=== PATIENT | male | born 1950 | race Caucasian/White ===

== ENCOUNTER 2019-12-10 08:59 | Outpatient (CLI) | payer MEDICARE, OTHER, SELFPAY ==
--- NOTE | 2019-12-10 09:12 | CT_ITS ---
WS: [id number] CT CHEST TECHNIQUE: Contrast enhanced CT of the chest with coronal and sagittal reformatted images. 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 FINDINGS: Moderate chronic emphysematous changes. No evidence of metastatic disease. No suspicious pu lmonary parenchymal abnormalities. Interstitial thickening in the lung bases likely inflammatory unch anged. No new pulmonary infiltrates. A few calcified granulomas. No mediastinal or hilar lymphadenopathy. Small esophageal hiatal hernia. Proximal main pulmonary liberty alejandra are normal. Normal caliber thoracic aorta. No axillary lymphadenopathy. 9 mm right adrenal nodule likely adenoma unchanged. Mild fatty atrophy of the pancreas. Prominent ant erior hypertrophic changes thoracic spine. CT/CT chest w con* [id number] IMPRESSION: 1. No evidence of metastatic disease. 2. No mediastinal or hilar lymphadenopathy. 3. Interstitial thickening right greater than left lung base likely inflammator y unchanged. 4. No significant interval changes.
--- NOTE | 2019-12-10 09:12 | CT_ITS ---
WS: [id number] CT NECK TECHNIQUE: Contrast-enhanced CT of the neck with coronal and sagittal reformatted images. 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 FINDINGS: Prior postoperative changes left submandibular gland resection. Prior resection left lateral tongue b ase mass. No evidence of residual or recurrent disease. Stable postoperative and posttherapeutic changes at the tongue base. Parotid glands are normal. No ce rvical lymphadenopathy. No evidence of supraglottic or glottic mass. Lung apices are normal. Moderate spondylitic changes cervical spine with mild/moderate central canal stenosis C5-C6 and C6-C7. Paranasal sinuses and mastoid air cells are well aerated. CT/CT neck w con* [id number] IMPRESSION: 1. No evidence of residual or recurrent disease. 2. No cervical Lymphadenopathy . 3. Prior postoperative changes resection left submandibular gland. Previous Res ection left lateral tongue base mass. 4. No significant interval changes since May 03, 2019
[2019-12-10 10:13] LABS: Blood Urea Nitrogen 13 mg/dL (8-23)
[2019-12-10] MEDS: iohexol 300 mg/mL 100 mL Btl IV ×2 (10:23→10:28)
== END 2019-12-10 09:00 | disposition home or self-care (01) ==
LOC: RADWPI 09:07
PROVIDERS: Family Provider Family Medicine; PCP Radiology Radiation Oncology; Visit Provider Radiology Radiation Oncology
DX: C02.8 Malignant neoplasm of overlapping sites of tongue (principal)
CPT/HCPCS: 70491; 71260; 82565; 84520; Q9967

== ENCOUNTER 2019-12-13 09:13 | Outpatient (CLI) | payer MEDICARE, OTHER, SELFPAY ==
[2019-12-13 11:57] LABS: Thyroid Stimulating Hormone 3.99 uIU/mL (0.27-4.20)
--- NOTE | 2019-12-13 13:07 | ONCRAD EPV_ITS ---
Radiation Oncology Established Patient Visit Patient: Juanjose MR#: [id number] : 1950 Age: 69 Sex: Male Dictated by: Dr. James Mccarthy Date of Service: 12/13/2019 Referring Physician(s) : Dr. 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 ID: [id number], Energy: 6X, Dose/Fx (cGy): 200, #Fx: 3 / 3, Dose Correction (cGy): 0, Total Dose (cGy): 600, Start Date: 05/06/2018, End Date: 05/08/2018, Elapsed Days: 2 Treatment Site: Initial 54Gy, Ref. ID: [id number], Energy: 6X, Dose/Fx (cGy): 200, #Fx: , Dose Correction (cGy): 0, Total Dose (cGy): 5,400, Start Date: 03/26/2018, End Date: 05/05/2018, Elapsed Days: 40 Current History: The patient is seen in follow-up today, and he reports no difficulty swallowing, no aspiration, no new lumps or bumps on his neck, and his weight is stable. He has persistent yet mildly improving dysgeusia, and persistent xerostomia. By report, his last TSH was completed July 2018 (laboratory values not currently available to me). 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 Current Medications: Allergies: No Known Allergies Current Complaints / Review of Systems: Constitutional - Denies lack of appetite, fatigue, fever, night sweats and change in weight. Eyes - Denies blurred vision and double vision. ENMT - Complains of altered taste and tinnitus. Denies dysphagia, ear pain, problems with hearing, mouth dryness and stomatitis. Neck - Complains of decreased range of motion to the right. Denies neck pain and swelling of the neck. Integumentary - Denies rash. Cardiovascular - Denies arrhythmias, chest pain and edema. Respiratory - Denies cough, dyspnea, hiccoughs and wheezing. Gastrointestinal - Denies abdominal pain, constipation, diarrhea, heartburn / dyspepsia, melena / GI bleeding, nausea and vomiting. Genitourinary (M) - Complains of nocturia occasionally. Denies dysuria, frequency and urgency. Musculoskeletal - Denies bone pain, joint pain and muscle weakness. Neurologic - Denies dizziness, abnormal gait and headaches. Endocrine - Denies diabetes and thyroid disease. Hematologic/Lymphatic - Denies tender or enlarged lymph nodes.. Vital Signs: Performed on 12/13/2019 9:52 AM BMI - 28.531 kg/m2 (high), Height - 69.00 in, Weight - 193.2 lbs, Temperature - 97.3 f, Pulse - 48, Respiration - 18, O2 Sat - 97 %, Pain - 0, Fatigue - 0 and BP - 126/ 80 mm(hg). Physical Exam: General: Alert and oriented x 3. No acute distress. HEENT: Normocephalic, atraumatic. Extraocular Movements Intact: Pupils Equal, Round, Reactive to Light and Accommodation: Sclerae anicteric. Oral cavity is clear without lesions, masses or ulcers, and, the patient is edentulous. The uvula flexes midline. The oral tongue demonstrates limited range of motion, but no visual mucosal irregularity or palpable masses concerning for recurrence. NECK: Supple without supraclavicular or jugular lymphadenopathy. The patient has moderate range of motion limitations to his neck secondary to left neck fibrotic posttreatment changes. LUNGS: Clear to auscultation bilaterally without rales, rhonchi or wheeze. HEART: Regular rate and rhythm, normal S1 and S2 without murmur, gallop or rub. MUSCULOSKELETAL: No tenderness or percussion pain over the axial skeleton, scapulae or pelvis. EXTREMITIES: No peripheral edema is identified. NEUROLOGIC: Cranial nerves II ???XII are grossly intact. Normal sensation, strength 5/5 in all extremities, normal gait, no ataxia. Performance Status: ECOG 0 Lab: None pending. Pathology: Primary, c02.8 - malignant neoplasm of overlapping sites of tongue, Diagnosed 02/09/2018 (active). 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 The patient has no clinical or radiographic evidence of disease recurrence, or metastasis. After reviewing the medical records, in November [address] of the neck identified a 5 mm nodule in the right upper lobe of lung. A follow-up CT of the chest in January 2019 noted that the 5 mm nodule in the right upper lobe of lung was not as evident . The patient presented for follow-up today with a CT of the chest and CT of the neck (12/10/2019). There is no evidence of malignant disease in the neck or chest. There may be limited benefit to continue with further radiographic surveillance especially since the 4 month posttreatment PET/CT was negative, and the 5 mm nodule in the right upper lobe of lung is not as evident. Therefore, I recommend that further radiographic imaging only become completed as deemed clinically necessary. I have ordered a TSH today, since the last one was done July 2018. We will call the patient with results of the TSH and next management steps. The patient no longer smokes, and he is edentulous. I recommended follow-up with us in 4 months. 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 Signed by: 12/13/2019 1:05:46 PM <<Signature on File>> CPT Code: CPT Code:
== END 2019-12-13 09:14 | disposition home or self-care (01) ==
PROVIDERS: PCP Family Medicine; Visit Provider Radiology Radiation Oncology
DX: C02.8 Malignant neoplasm of overlapping sites of tongue (principal); E03.9 Hypothyroidism, unspecified; I10 Essential (primary) hypertension; F32.9 Major depressive disorder, single episode, unspecified; M19.90 Unspecified osteoarthritis, unspecified site
CPT/HCPCS: 84443; 99214

== ENCOUNTER 2020-05-01 12:52 | Outpatient (CLI) | payer MEDICARE, OTHER, SELFPAY ==
--- NOTE | 2020-05-01 13:42 | ONCRAD EPV_ITS ---
Radiation Oncology Established Patient Visit Patient: Rodrigue Ibarra [id number] : 1950> Age: 69> Sex: Male> Dictated by: Dr. Harpreet Urban Date of Service: 05/01/2020 Referring Physician(s): Dr. Malachi Nam Diagnosis: Tongue cancer Mr. Fred Husain, is a 67-year-old gentleman with a two-month history of left tongue lesion for which he underwent ENT evaluation in November 2017 which showed 4 cm left oral tongue tumor with extension to the floor of mouth, non-fixed, lesion crossed midline and there was no palpable lymph node in the neck and flexible laryngoscopy was normal. 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 Subsequently underwent CT scan of the neck on 12/22/2017 which showed 2.7 x 1.6 x 2.6 cm enhancing mass within the left tongue which appears to invade the extrinsic muscles the tongue. There is abutment of the left body of mandible without evidence of osseous destruction. There are a few tiny lymph nodes in the left neck largest being 7 mm level IIa. PET scan was done on 12/22/2017 which showed hypermetabolic activity in the mass in the left tongue anteriorly possibly involving floor of the mouth with max SUV 14.1 and there was no obvious lymphadenopathy in the neck or distant metastases. On 01/07/2018 patient underwent left partial glossectomy, left neck dissection, left supraclavicular flap reconstruction and tracheostomy tube placement in [facility]. PEG tube was also placed in on 01/12/2018 final pathology report showed moderately differentiated squamous cell carcinoma measuring 2.8 cm with 1.3 cm tumor thickness. Tumor involves the mouth. Margins were initially closed at 1 mm at the inferior and superior soft tissue margins. These were both re-resected with a no residual carcinoma and final margins were negative. T3, 0 out of 34 neck lymph node were negative. N0, M0 Postop period was complicated with small area of dehiscence along floor of the mouth and now being evaluated by his surgeon. Vital Signs: Performed on 05/01/2020 1:14 PM BMI - 27.94 kg/m2 (high), Height - 69.00 in, Weight - 189.2 lbs, Temperature - 97.8 f, Pulse - 61, Respiration - 18, O2 Sat - 96 %, Pain - 0, Fatigue - 0 and BP - 137/ 83 mm(hg). Physical Exam: The oral cavity demonstrated dry mucous membranes. The patient was edentulous. Examination of the tongue not reveal any induration. Limited tongue mobility noted. There was no palpable submental, mandibular, or cervical adenopathy. Auscultation of the posterior lung gustafson were clear. Heart sounds were regular in rate and rhythm. Patient returned for a routine follow-up appointment. He will continue otolaryngology follow-up as scheduled. Signed by: 05/01/2020 1:41:13 PM <<Signature on File>> Time spent with patient: CPT Code: CPT Code:
== END 2020-05-01 12:53 | disposition home or self-care (01) ==
LOC: ONCMED 12:56
PROVIDERS: PCP Family Medicine; Visit Provider Radiology Radiation Oncology
DX: C02.8 Malignant neoplasm of overlapping sites of tongue (principal); Z92.3 Personal history of irradiation; Z98.890 Other specified postprocedural states; T81.30XD Disruption of wound, unspecified, subsequent encounter; Y83.8 Other surgical procedures as the cause of abnormal reaction of the patient, or of later complication, without mention of misadventure at the time of the procedure
CPT/HCPCS: 99213

== ENCOUNTER → 2023-08-28 13:24 | Outpatient (BNVA) | payer MEDICARE, OTHER, SELFPAY | PROVIDERS: PCP Family Medicine; Visit Provider Nurse Practitioner Family | DX: D48.5 Neoplasm of uncertain behavior of skin (principal); L57.0 Actinic keratosis; D17.21 Benign lipomatous neoplasm of skin and subcutaneous tissue of right arm; D22.62 Melanocytic nevi of left upper limb, including shoulder; L57.8 Other skin changes due to chronic exposure to nonionizing radiation; L81.4 Other melanin hyperpigmentation; L82.1 Other seborrheic keratosis | CPT/HCPCS: 11102; 17000; 99203 ==

== ENCOUNTER 2024-11-16 19:35 | Emergency (ER) | payer MEDICARE, OTHER, SELFPAY ==
[2024-11-16 19:51] VITALS: BP 164/85; PULSE 62; RESP 16; O2SAT 94
--- NOTE | 2024-11-16 20:19 | CTR_ITS ---
PROCEDURE INFORMATION: Exam: CT Head Without Contrast Exam date and time: 11/16/2024 8:29 PM Age: 73 years old Clinical indication: Injury or trauma; Blunt trauma (contusions or hematomas); Without loss of consciousness; Additional info: Fall TECHNIQUE: Imaging protocol: Computed tomography of the head without contrast. Radiation optimization: All CT scans at this facility use at least one of these dose optimization techniques: automated exposure control; mA and/or kV adjustment per patient size (includes targeted exams where dose is matched to clinical indication); or iterative reconstruction. COMPARISON: CT neck w con* [id number] 12/10/2019 10:19 AM RADIATION DOSE METRICS: Total DLP (mGy-cm): 1079.38 FINDINGS: Brain: Negative for intracranial hemorrhage. Central atrophy and mild periventricular deep white matter hypodensity, likely secondary to chronic microvascular ischemia. Cerebral ventricles: No ventriculomegaly. Paranasal sinuses: Visualized sinuses are unremarkable. No fluid levels. Mastoid air cells: Visualized mastoid air cells are well aerated. Bones: Unremarkable. No acute fracture. Soft tissues: Unremarkable. CT/CT head wo con* [id number] IMPRESSION: Negative for intracranial hemorrhage. No identified acute intracranial pathology.
[2024-11-16 20:20] VITALS: BP 158/81; PULSE 68; RESP 16; O2SAT 95
--- NOTE | 2024-11-16 20:21 | W.ED.FALL ---
Documented by User: Livia Hebert MD 11/16/24 22:15 HPI - Fall General: Chief Complaint: Fall Stated Complaint: Cut Left Ear Time Seen by Provider: 11/16/24 20:10 Source: patient Mode of arrival: ambulatory Limitations: no limitations History of Present Illness: 73-year-old male states that he is up on a ladder fell hit his head on the gutter. States he hit his left ear he does have some pain behind his left ear along with headache denies any loss consciousness he does have a laceration to the pinna of his left ear. He denies any neck pain denies any other injuries Associated symptoms-after fall: Reports headache(s); Denies abdominal pain, chest pain or neck pain Related Data Allergies Allergy/AdvReac Type Severity Reaction Status Date / Time No Known Allergies Allergy Verified 11/16/24 19:53 Review of Systems Const: Denies: fever(s), chills, body aches or change in appetite ENMT: Denies: throat pain or dental pain Card: Denies: chest pain Resp: Denies: dyspnea GI: Denies: abdominal pain, nausea, vomiting or diarrhea Musc: Denies: neck pain or back pain Skin/Breast: Denies: rash Neuro: Reports: headache(s) Physical Exam Const: COMMON NORMALS: no acute distress, patient oriented x3 and healthy appearing HENMT: COMMON NORMALS: normocephalic HEAD & SCALP: normocephalic OTHER: Tenderness behind left ear does have a laceration roughly 2 cm through the left pinna Eye: COMMON NORMALS: Equal, round and reactive pupils present and EOMs intact bilaterally PUPIL: Yes Equal, round and reactive pupils present Neck/C-Spine: COMMON NORMALS: full ROM and supple CERVICAL SPINE: No Cervical spine tenderness Chest: COMMONS NORMALS: normal inspection of the chest and normal palpation of entire chest wall Resp: COMMON NORMALS: normal respiratory effort, No retractions, No use of accessory muscles and clear to auscultation bilaterally AUSCULTATION: clear to auscultation bilaterally Cardio: COMMON NORMALS: regular rate, regular rhythm and No murmurs present (Cardio) RATE: regular rate RHYTHM: regular rhythm Extremity: COMMON NORMALS: normal to inspection and full ROM Neuro: COMMON NORMALS: patient oriented x3, moves all extremities and no focal motor deficits Psych: COMMON NORMALS: mental status grossly normal, Normal thought process present and cooperative THOUGHT PROCESS: Normal thought process present Skin: COMMON NORMALS: no rashes or lesions noted and no wounds GENERAL SKIN EXAM: no rashes or lesions noted Course Vital Signs: Vital signs: Vital Signs Pulse Rate 65 11/16/24 22:03 Respiratory Rate 16 11/16/24 22:03 Blood Pressure 151/76 11/16/24 22:03 Pulse Oximetry 95 11/16/24 22:03 Oxygen Delivery Me thod Room Air 11/16/24 21:30 MDM - Fall Medical Decision Making Patient presents here with closed head injury, ear laceration after a fall imaging here is negative he did have his ear repaired he is to have sutures removed in 10 days return if worsening. Medical Records I reviewed the patient's medical records. Lab Data I reviewed the patient's lab results. Radiology Impressions Head CT 11/16/24 20:19 IMPRESSION: Negative for intracranial hemorrhage. No identified acute intracranial pathology. All radiology interpretation(s) finalized by discharge Discharge Plan Discharge Patient Disposition: Home Clinical Impression: Closed head injury, Laceration of ear Condition: Stable Discharge Orders: Discharge ED (Routine); Ordered 11/16/24 Ordered By: Livia Hebert Referrals: Juvenal Ogden DO [Primary Care Provider, [facility]] - 7-10 days Discharge Diet: Advance as tolerated Discharge Activity: Resume usual activity Patient Instructions: Laceration (ED) Activity Restrictions/Additional Instructions: suture removal in 10 days Print Language: Korean Coding Level of Care Code ED Admissions Advisor for Chg Fwd Documented by User: YOSSI Lopez 11/16/24 22:01 HPI - Fall General: Chief Complaint: Fall Stated Complaint: Cut Left Ear Time Seen by Provider: 11/16/24 20:10 Related Data Allergies Allergy/AdvReac Type Severity Reaction Status Date / Time No Known Allergies Allergy Verified 11/16/24 19:53 Procedures Laceration Laceration 1: Site: other (ear) Side (If applicable): left Size (cm): 5 Description: linear Depth: [id number] (outer portion of ear) Local Anesthetic: lidocaine 1% Amount of anesthesia used (mL): 5 Pre-repair: wound explored and irrigated extensively Skin layer closed with: nylon Size (cm): 6-0 Number of sutures: 3 Technique: simple, interrupted (1 simple) and running (2 running) Subcutaneous layer closed with: vicryl Size: 5-0 Number of sutures: 1 Course Vital Signs: Vital signs: Vital Signs Pulse Rate 65 11/16/24 22:03 Respiratory Rate 16 11/16/24 22:03 Blood Pressure 151/76 11/16/24 22:03 Pulse Oximetry 95 11/16/24 22:03 Oxygen Delivery Me thod Room Air 11/16/24 21:30 MDM - Fall Lab Data Radiology Impressions Head CT 11/16/24 20:19 IMPRESSION: Negative for intracranial hemorrhage. No identified acute intracranial pathology. Discharge Plan Discharge Patient Disposition: Home Clinical Impression: Closed head injury, Laceration of ear Condition: Stable Discharge Orders: Discharge ED (Routine); Ordered 11/16/24 Ordered By: Livia Hebert Referrals: Juvenal Ogden DO [Primary Care Provider, [facility]] - 7-10 days Discharge Diet: Advance as tolerated Discharge Activity: Resume usual activity Patient Instructions: Laceration (ED) Activity Restrictions/Additional Instructions: suture removal in 10 days Print Language: Korean Coding Level of Care Code ED Admissions Advisor for Brionna Brown
[2024-11-16 21:30] VITALS: BP 151/83; PULSE 60; RESP 16; O2SAT 95
[2024-11-16] MEDS: mupirocin oint 22 gm 1 APPLIC TOPICAL (21:52)
[2024-11-16 22:03] VITALS: BP 151/76; PULSE 65; RESP 16; O2SAT 95
== END 2024-11-16 22:04 | disposition home or self-care (01) ==
PROVIDERS: Emergency Provider Emergency Medicine; PCP Electrodiagnostic Medicine
DX: S09.8XXA Other specified injuries of head, initial encounter (principal); S01.312A Laceration without foreign body of left ear, initial encounter; W11.XXXA Fall on and from ladder, initial encounter
CPT/HCPCS: 12013; 70450; 99284; J9999

== ENCOUNTER 2025-05-13 16:52 | Outpatient (CLI) | payer MEDICARE, OTHER, SELFPAY ==
--- NOTE | 2025-05-13 16:57 | USR_ITS ---
PROCEDURE INFORMATION: Exam: US Scrotum Exam date and time: 05/13/2025 5:02 PM Age: 74 years old Clinical indication: Atrophy of testis; Additional info: Atrophy of testicles TECHNIQUE: Imaging protocol: Real-time ultrasound of the scrotum and contents with color Doppler and image documentation. COMPARISON: CT chest abdpel w/*[id number] 02/05/2019 2:31 PM FINDINGS: Right testicle: Right testicular volume is 8.5 ml. No mass. Normal color Doppler and arterial waveforms. No torsion. Left testicle: Left testicular volume is 24.7 ml. Normal color Doppler and arterial waveforms. No torsion. Epididymides: Normal. Scrotum/soft tissues: Normal. Left hydrocele. 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 Left hydrocele.
== END 2025-05-13 16:53 | disposition home or self-care (01) ==
LOC: RAD 16:55
PROVIDERS: PCP Electrodiagnostic Medicine; Visit Provider Electrodiagnostic Medicine
DX: N50.0 Atrophy of testis (principal); N43.3 Hydrocele, unspecified
CPT/HCPCS: 76870